=== PATIENT | female | born 1970 | race Caucasian/White ===

== ENCOUNTER → 2017-02-08 | Outpatient (CLI) | payer OTHER | END | disposition home or self-care (01) | LOC: MAMMO 15:39 | PROVIDERS: ATTEND Family Medicine | DX: Z12.31 Encounter for screening mammogram for malignant neoplasm of breast (principal) ==

== ENCOUNTER 2017-03-12 17:02 | Emergency (ER) | payer SELFPAY ==
[2017-03-12 17:17] VITALS: TEMP 98.3; O2SAT 97
--- NOTE | 2017-03-12 17:34 | ED.PDOC ---
History of Present Illness - General Chief Complaint: Abdominal Pain Stated Complaint: abdominal pain Time Seen by Provider: 03/12/17 17:33 Information Source: patient, RN notes reviewed, Vital Signs reviewed Additional Information: Pt reports that she thinks she is having a diverticulitis flare up. She reports several days of constipation over the past week. Two nights ago she tried Magnesium Citrate, and then last night she tried a [employer] stool softener and "Correct-all". Pt reports left lower lateral abdominal pain described as a cramping sensation with occasional sharp pain. She states her pain is better by lying still and applying a heating pad to the area. She says her pain is worse with movement or laughing. She denies recent trauma and she cannot recall any recent exacerbating event/activity which may have triggered the onset of her current symptoms. - History of Present Illness Abdominal Pain Onset Location: LLQ Quality: moderate, cramping, sharpness, waxing/waning Timing/Duration: 1 week Improving Factors: immobilization Worsening Factors: movement Associated Symptoms: other - constipation recently Review of Systems - Review of Systems Constitutional: States: no symptoms reported EENTM: States: no symptoms reported Respiratory: States: no symptoms reported Cardiology: States: no symptoms reported Gastrointestinal/Abdominal: States: see HPI, abdominal pain, constipation Genitourinary: States: no symptoms reported Musculoskeletal: States: no symptoms reported Skin: States: no symptoms reported Neurological: States: no symptoms reported Endocrine: States: no symptoms reported Hematologic/Lymphatic: States: no symptoms reported Past Medical History (General) - Patient Medical History Hx Dementia: Yes Hx Congestive Heart Failure: No Hx Diabetes: No Hx Gastroesophageal Reflux: Yes Hx Other PMH: Yes - Morbid Obesity Surgical History: cholecystectomy, tonsillectomy - Vaccination History Hx Tetanus, Diphtheria Vaccination: Yes Hx Influenza Vaccination: No - Social History Hx Tobacco Use: Yes Hx Alcohol Use: Yes - Female History Patient is a Female of Child Bearing Age (10 -59 yrs old): Yes Patient : No Family Medical History - Family History Mother Family History: No Known Living Status: Physical Exam - Physical Exam General Appearance: No apparent distress - at rest; but she is uncomfortable with movement or laughter, Obese Eyes, Ears, Nose, Throat Exam: PERRL/EOMI, normal ENT inspection Neck: non-tender, full range of motion, supple, normal inspection Respiratory: no respiratory distress Cardiovascular/Chest: regular rate, rhythm Gastrointestinal/Abdominal: soft, tenderness - left lateral aspect of abdomen Back Exam: normal inspection Extremity: normal range of motion, non-tender Neurologic: senior production supervisor II-XII nml as tested, no motor/sensory deficits, alert, normal mood/affect, oriented x 3 Skin Exam: normal color Special Observations: Tolerates fluids, Tolerates PO Progress - Progress Progress: 03/12/17 18:[address] results relayed to patient. Pt stable to be discharged home with plan for outpatient management. Return precautions given. - Results/Orders Results/Orders: CT Abd/Pelvis Report: EXAM DESCRIPTION: Abdomen/Pelvis w/Contrast CLINICAL HISTORY: 46 years Female left sided abdominal pain COMPARISON: None. TECHNIQUE: Contiguous axial images obtained through the abdomen and pelvis following IV contrast. Reformatted images obtained. This exam was performed according to our department optimization program which includes automated exposure control, adjustment of the mA and/or kv according to patient size and/or use of iterative reconstruction technique. FINDINGS: Liver is within normal limits of size. The spleen and pancreas appear unremarkable. No adrenal masses. The kidneys appear unremarkable. No hydronephrosis. The gallbladder is surgically absent. No aneurysmal dilatation of the aorta. No bowel obstruction. There is wall thickening and inflammation in the descending colon surrounding an inflamed diverticulum. Small amount of stranding along the paracolic gutter. No evidence of abscess. Unremarkable appendix. No significant free fluid noted. IMPRESSION: Findings suggesting acute uncomplicated diverticulitis in the descending colon Electronically signed by: Mary Grace Quiles 03/12/2017 6:20 PM CDT Dictated By: Mary Grace Quiles MD Signed By: Mary Grace Quiles MD Dictated Date/Time: 03/12/17 175 Transcribed Date/Time: 03/12/171752 Rug Layer: Signed Date/Time: 03/12/17 0760 CC: 03/12/17 17:54 Hold Metformin x 48Hrs [id number] Laboratory Results - last 24 hr 03/12/17 03/12/17 03/12/17 17:31 17:31 17:31 WBC 8.3 RBC 4.44 Hgb 13.5 Hct 40.2 MCV 90.5 MCH 30.4 MCHC 33.6 RDW 15.2 H Plt Count 336 MPV 8.1 Absolute Neuts (auto) 5.10 Absolute Lymphs (auto) 2.40 Absolute Monos (auto) 0.60 Absolute Eos (auto) 0.10 Absolute Basos (auto) 0.10 Neutrophils % 61.7 Lymphocytes % 28.7 Monocytes % 7.3 Eosinophils % 1.3 Basophils % 1.0 Sodium 139 Potassium 3.8 Chloride 101 Carbon Dioxide 26 Anion Gap 15.8 BUN 7 Creatinine 0.95 BUN/Creatinine Ratio 7.4 L Random Glucose 111 H Serum Osmolality 276.2 Calcium 8.9 Total Bilirubin 0.9 AST 20 ALT 15 Alkaline Phosphatase 84 Serum Total Protein 7.4 Albumin 3.8 Globulin 3.6 H Albumin/Globulin Ratio 1.1 Urine Color Yellow Urine Appearance Clear Urine pH 5.5 Ur Specific [place] 1.010 Urine Protein Negative Urine Glucose (UA) Negative Urine Ketones Negative Urine Blood Negative Urine Nitrite Negative Urine Bilirubin Negative Urine Urobilinogen 0.2 Ur Leukocyte Esterase Negative Urine RBC 0-1 Urine WBC 0-1 Ur Epithelial Cells 3-5 Urine Bacteria 2+ H Urine Mucus Trace 03/12/17 17:14 Temperature 98.3 F Pulse Rate [ 84 Right Brachial] Respiratory 20 Rate Blood Pressure 114/77 [Right Arm] O2 Sat by Pulse 97 Oximetry Departure - Departure Clinical Impression: Diverticulitis Qualifiers: Diverticulitis site: large intestine Diverticulitis bleeding: without bleeding Diverticulitis complication: without perforation or abscess Qualified Code(s): K57.32 - Diverticulitis of large intestine without perforation or abscess without bleeding Time of Disposition: 18:45 Disposition: Discharge to Home or Self Care Condition: Fair Departure Forms: ED Discharge - Pt. Copy, Patient Portal Self Enrollment Instructions: DI for Diverticulitis Diet: full liquid diet Referrals: CLAUDIA PRETTY [Primary Care Provider] - 1-2 Days Prescriptions: Ciprofloxacin [Cipro] 500 mg PO BID #20 tab metroNIDAZOLE [Flagyl] 500 mg PO TID #30 tab Home Medications: Ambulatory Orders Ciprofloxacin [Cipro] 500 mg PO BID #20 tab 03/12/17 metroNIDAZOLE [Flagyl] 500 mg PO TID #30 tab 03/12/17 Additional Instructions: Follow-up with primary care provider in 2 to 3 days for reassessment. Return to ER if condition worsens - fever, chills, unable to function, etc. Liquid diet for now and advance slowly as tolerated.
--- NOTE | 2017-03-12 18:22 | CT ---
EXAM DESCRIPTION: Abdomen/Pelvis w/Contrast CLINICAL HISTORY: 46 years Female left sided abdominal pain COMPARISON: None. TECHNIQUE: Contiguous axial images obtained through the abdomen and pelvis following IV contrast. Reformatted images obtained. This exam was performed according to our department optimization program which includes automated exposure control, adjustment of the mA and/or kv according to patient size and/or use of iterative reconstruction technique. FINDINGS: Liver is within normal limits of size. The spleen and pancreas appear unremarkable. No adrenal masses. The kidneys appear unremarkable. No hydronephrosis. The gallbladder is surgically absent. No aneurysmal dilatation of the aorta. No bowel obstruction. There is wall thickening and inflammation in the descending colon surrounding an inflamed diverticulum. Small amount of stranding along the paracolic gutter. No evidence of abscess. Unremarkable appendix. No significant free fluid noted. IMPRESSION: Findings suggesting acute uncomplicated diverticulitis in the descending colon Electronically signed by: Mary Grace Quiles 03/12/2017 6:20 PM CDT
[2017-03-12] MEDS ORDERED: metroNIDAZOLE 500 MG TAB PO ONE (18:42)
[2017-03-12] MEDS ORDERED: CIPROFLOXACIN 500 MG TAB PO ONE (18:42)
[2017-03-12 18:54] VITALS: BP 126/89
== END 2017-03-12 18:53 | disposition home or self-care (01) ==
LOC: ER 17:02
DX: K57.32 Diverticulitis of large intestine without perforation or abscess without bleeding (principal); K21.9 Gastro-esophageal reflux disease without esophagitis; F03.90 Unspecified dementia, unspecified severity, without behavioral disturbance, psychotic disturbance, mood disturbance, and anxiety; E66.01 Morbid (severe) obesity due to excess calories; Z87.891 Personal history of nicotine dependence

== ENCOUNTER 2018-06-25 14:58 | Emergency (ER) | payer OTHER ==
--- NOTE | 2018-06-25 15:22 | ED.PDOC ---
History of Present Illness - General Chief Complaint: Abdominal Pain Stated Complaint: abdominal pain Time Seen by Provider: 06/25/18 15:07 Information Source: patient Exam Limitations: no limitations - History of Present Illness Initial Comments: Jeri Staples 47 y/o female stated that she had been having intermittent dull intermittent left sided abdominal pains radiating to epigastrium since no vomiting or diarrhea ,no constipation but felt nauseated.Had been diagnosed with diverticulitis 2 years ago on abd-ct done here but no GI appointment made. Abdominal Pain Onset Location: LUQ, LLQ Pain Radiation: epigastric Quality: moderate Timing/Duration: days - 4 Improving Factors: nothing Worsening Factors: nothing Associated Symptoms: other - see hpi Review of Systems - Review of Systems Constitutional: States: no symptoms reported EENTM: States: no symptoms reported Respiratory: States: no symptoms reported Cardiology: States: no symptoms reported Gastrointestinal/Abdominal: States: see HPI Genitourinary: States: no symptoms reported Musculoskeletal: States: no symptoms reported Skin: States: no symptoms reported Neurological: States: no symptoms reported Past Medical History (General) - Patient Medical History Hx Dementia: Yes Hx Congestive Heart Failure: No Hx Diabetes: No Hx Gastroesophageal Reflux: Yes Surgical History: cholecystectomy, tonsillectomy, other - c- section - Vaccination History Hx Tetanus, Diphtheria Vaccination: Yes Hx Influenza Vaccination: No - Social History Hx Tobacco Use: Yes Hx Alcohol Use: Yes Hx Substance Use: No Hx Physical Abuse: No Hx Emotional Abuse: No - Female History Patient is a Female of Child Bearing Age (10 -59 yrs old): Yes Hx Last Menstrual Period: 06/10/18 Patient : No Family Medical History - Family History Mother Family History: No Known Living Status: Hx Family Stroke: Yes - mom Hx Family Diabetes: Yes - multiple family members Physical Exam - Physical Exam General Appearance: Alert, Comfortable, No apparent distress Eyes, Ears, Nose, Throat Exam: normal ENT inspection, pharynx normal Neck: non-tender, full range of motion, supple, normal inspection Respiratory: chest non-tender, lungs clear, normal breath sounds Cardiovascular/Chest: normal peripheral pulses, regular rate, rhythm, no murmur Peripheral Pulses: No deficit Gastrointestinal/Abdominal: normal bowel sounds, soft, tenderness - left sideabdomen no peritoneal signs Extremity: non-tender, no pedal edema, no calf tenderness Neurologic: alert, oriented x 3 Skin Exam: normal color, warm/dry Lymphatic: no adenopathy Progress - Progress Progress: 06/25/18 17:05 Vital Signs - 8 hr 06/25/18 06/25/18 16:00 16:45 Pulse Rate [ 73 73 left radial] Respiratory 16 18 Rate Blood Pressure 118/97 117/93 [left radial] O2 Sat by Pulse 98 97 Oximetry - Results/Orders Results/Orders: 06/25/18 15:31 IV Care:Saline Lock per Protoc QSHIFT 06/25/18 16:17 Hold Metformin x 48Hrs [id number] Laboratory Results - last 24 hr 06/25/18 06/25/18 15:39 15:50 WBC 9.0 RBC 4.55 Hgb 14.3 Hct 42.8 MCV 93.9 MCH 31.4 H MCHC 33.4 RDW 14.1 Plt Count 295 MPV 8.2 Absolute Neuts (auto) 5.80 Absolute Lymphs (auto) 2.40 Absolute Monos (auto) 0.60 Absolute Eos (auto) 0.10 Absolute Basos (auto) 0.10 Neutrophils % 65.0 Lymphocytes % 27.2 Monocytes % 6.2 Eosinophils % 0.9 L Basophils % 0.7 PT 9.7 INR 0.97 PTT (SP) 25.5 Sodium 137 Potassium 3.7 Chloride 100 L Carbon Dioxide 29 Anion Gap 11.7 L BUN 10 Creatinine 1.00 BUN/Creatinine Ratio 10.0 Random Glucose 96 Serum Osmolality 272.7 L Calcium 8.8 Magnesium 2.2 Total Bilirubin 0.6 Direct Bilirubin 0.1 Indirect Bilirubin 0.5 AST 18 ALT 12 Alkaline Phosphatase 81 Creatine Kinase 143 H CK-MB (CK-2) 1.4 CK-MB (CK-2) % Not Reportable Troponin I < 0.02 Serum Total Protein 7.4 Albumin 3.8 Lipase 24 Urine Color Yellow Urine Appearance Clear Urine pH 7.0 Ur Specific [place] 1.020 Urine Protein Negative Urine Glucose (UA) Negative Urine Ketones Negative Urine Blood Negative Urine Nitrite Negative Urine Bilirubin Negative Urine Urobilinogen 0.2 Ur Leukocyte Esterase Negative Urine RBC 0 Urine WBC 0 Ur Epithelial Cells 10-20 Urine Bacteria Rare - EKG/XRAY/CT CT Ordered: Yes - abd/p-mild sigmoid diverticulitis/radiologist Departure - Departure Clinical Impression: Diverticulitis of large intestine Qualifiers: Diverticulitis bleeding: without bleeding Diverticulitis complication: without perforation or abscess Qualified Code(s): K57.32 - Diverticulitis of large intestine without perforation or abscess without bleeding Abdominal pain Qualifiers: Abdominal location: left lower quadrant Qualified Code(s): R10.32 - Left lower quadrant pain Time of Disposition: 17:08 Disposition: Discharge to Home or Self Care Condition: Fair Departure Forms: ED Discharge - Pt. Copy, Patient Portal Self Enrollment Instructions: Diverticulitis (DC), Diverticulitis Diet: full liquid diet - for the next 48 hour then to advanced as tolerated avoid high fiber diet for 7 days Referrals: CLAUDIA PRETTY [Primary Care Provider] - 1-2 Weeks Prescriptions: Ciprofloxacin [Cipro] 500 mg PO BID #20 tab Metronidazole 500 mg PO BID 7 Days #14 tab Promethazine W/Codeine Syr [Phenergan With Codeine Syrup] 10 ml PO TID PRN #100 ml PRN Reason: Pain Home Medications: Ambulatory Orders Ciprofloxacin [Cipro] 500 mg PO BID #20 tab 06/25/18 Citalopram Hydrobromide [Citalopram] 40 mg PO 06/25/18 LORazepam [Ativan] 0.5 mg PO Q8HR PRN 06/25/18 Metronidazole 500 mg PO BID 7 Days #14 tab 06/25/18 Promethazine W/Codeine Syr [Phenergan With Codeine Syrup] 10 ml PO TID PRN #100 ml 06/25/18 Additional Instructions: Return to ER if symptoms worsens;follow up with primary Md 26 June 2018 for Gastroentology referral
[2018-06-25] MEDS ORDERED: LACTATED RINGERS 1,000 ML IVS ONE (15:31)
[2018-06-25] MEDS ORDERED: MORPHINE SULFATE INJ 10 MG/ML VIAL IV ONE (15:32)
[2018-06-25] MEDS ORDERED: PROMETHAZINE HCL INJ 25 MG/ML VIAL IM ONE (15:33)
--- NOTE | 2018-06-25 16:54 | CT ---
EXAM: Abdomen/Pelvis w/Contrast CLINICAL INDICATION: Abdominal pain. COMPARISON: 03/12/2017 TECHNIQUE: The CT scan was done using contiguous axial 5 mm postcontrast sections through the abdomen and pelvis including IV contrast. This exam was performed according to our departmental dose-optimization program, which includes automated exposure control, adjustment of the mA and/or kV according to patient size and/or use of iterative reconstruction technique. FINDINGS: This examination is labeled as a postcontrast study but there is minimal contrast opacification of the organs and vessels. Suggest clinical correlation for IV extravasation. The visualized lung bases are clear. The liver, spleen, adrenal glands, kidneys, and pancreas have an unremarkable CT appearance. The aorta is normal in caliber. No dilated loops of small bowel are seen. The sigmoid colon has a mildly thickened and inflamed appearance suggesting mild acute diverticulitis. A 4.1 x 3.2 cm simple cyst is noted in the left ovary. There is no abscess or free air. IMPRESSION: 1. Findings suggesting mild acute diverticulitis. 2. 4.1 x 3.2 cm simple cyst in the left ovary, almost certainly benign for which no imaging follow-up is recommended. In the acute pain setting, correlation with pelvic ultrasound may be warranted to exclude ovarian torsion. 3. Otherwise, no acute intra-abdominal process. Electronically signed by: Perez Castaneda MD 06/25/2018 4:53 PM THERAPY SITE COORDINATOR
[2018-06-25] MEDS ORDERED: levoFLOXacin 500 MG TAB PO ONE (17:08)
[2018-06-25] MEDS ORDERED: metroNIDAZOLE 500 MG TAB PO ONE (17:09)
[2018-06-25 18:18] VITALS: BP 107/66; O2SAT 94
== END 2018-06-25 17:18 | disposition home or self-care (01) ==
LOC: ER 14:58
DX: K57.32 Diverticulitis of large intestine without perforation or abscess without bleeding (principal); K21.9 Gastro-esophageal reflux disease without esophagitis; F03.90 Unspecified dementia, unspecified severity, without behavioral disturbance, psychotic disturbance, mood disturbance, and anxiety; Z90.49 Acquired absence of other specified parts of digestive tract; Z87.891 Personal history of nicotine dependence
CPT/HCPCS: 36415; 74177; 80048; 80076; 81001; 82550; 82553; 83690; 84484; 85025; 85610; 85730; J2270; J2550; J7120

== ENCOUNTER 2018-08-18 08:42 | Emergency (ER) | payer SELFPAY ==
[2018-08-18 08:57] VITALS: BP 153/121; TEMP 99.5; O2SAT 95
[2018-08-18] MEDS ORDERED: BENZONATATE PERLES 100 MG CAP PO ONE (09:13)
[2018-08-18] MEDS ORDERED: AMOXICILLIN & POT CLAVULANATE 875 MG TAB PO ONE (09:13)
--- NOTE | 2018-08-18 09:16 | ED.PDOC ---
History of Present Illness - General Chief Complaint: Respiratory Problem Stated Complaint: cough, nasal congestion Time Seen by Provider: 08/18/18 09:13 Source: patient Exam Limitations: no limitations - History of Present Illness Comments: PT REPORTS 2 DAY HISTORY OF FACIAL PAIN, HEADACHE, NASAL CONGESTION AND COUGH. PT DENIES FEVER, CHILLS, SOB, OR CHEST PAIN. Cough Quality/Degree: mild Improving Factors: nothing Worsening Factors: nothing Associated Symptoms: cough, facial pain, headache, nasal congestion, nasal drainage, sinus infection Allergies/Adverse Reactions: Allergies Sulfamethoxazole w/Trimethoprim [From ] Allergy (Mild, Verified 08/18/18 08:58) Hives Home Medications: Ambulatory Orders Amoxicillin & Pot Clavulanate [Augmentin] 875 mg PO BID #20 tab 08/18/18 Benzonatate Perles [Tessalon Perles] 200 mg PO TID PRN #30 cap 08/18/18 Review of Systems - Review of Systems Constitutional: Denies: chills, fever EENTM: States: nose congestion. Denies: ear pain, throat pain Respiratory: States: cough. Denies: short of breath Cardiology: Denies: chest pain, palpitations Gastrointestinal/Abdominal: Denies: abdominal pain, nausea, vomiting Past Medical History (General) - Patient Medical History Hx Dementia: Yes Hx Congestive Heart Failure: No Hx Diabetes: No Hx Gastroesophageal Reflux: Yes Surgical History: cholecystectomy, tonsillectomy - Vaccination History Hx Tetanus, Diphtheria Vaccination: Yes Hx Influenza Vaccination: No - Social History Hx Tobacco Use: Yes Hx Alcohol Use: Yes Hx Substance Use: No Hx Physical Abuse: No Hx Emotional Abuse: No - Female History Hx Last Menstrual Period: 06/10/18 Patient : No Family Medical History - Family History Mother Family History: No Known Living Status: Hx Family Stroke: Yes - mom Hx Family Diabetes: Yes - multiple family members Physical Exam - Physical Exam General Appearance: Alert, No apparent distress, Obese, Well Groomed ENT Exam: hearing grossly normal, pharyngeal erythema, other - FRONTAL AND MAXILLARY SINUS TENDERNESS Neck: lymphadenopathy (R), lymphadenopathy (L) Respiratory: lungs clear, normal breath sounds, no respiratory distress Cardiovascular/Chest: regular rate, rhythm, no murmur Neurologic: alert, normal mood/affect, oriented x 3 Skin Exam: normal color, warm/dry Departure - Departure Clinical Impression: Sinusitis, URI with cough and congestion Time of Disposition: 09:17 Disposition: Discharge to Home or Self Care Condition: Good Departure Forms: ED Discharge - Pt. Copy, Patient Portal Self Enrollment Instructions: Sinusitis, Adult (DC), Viral Upper Respiratory Infection, Adult (DC) Referrals: CLAUDIA PRETTY [Primary Care Provider] - 1-5 Days Prescriptions: Amoxicillin & Pot Clavulanate [Augmentin] 875 mg PO BID #20 tab Benzonatate Perles [Tessalon Perles] 200 mg PO TID PRN #30 cap PRN Reason: Cough Home Medications: Ambulatory Orders Amoxicillin & Pot Clavulanate [Augmentin] 875 mg PO BID #20 tab 08/18/18 Benzonatate Perles [Tessalon Perles] 200 mg PO TID PRN #30 cap 08/18/18
== END 2018-08-18 09:40 | disposition home or self-care (01) ==
LOC: ER 08:42
DX: J06.9 Acute upper respiratory infection, unspecified (principal); J32.9 Chronic sinusitis, unspecified; K21.9 Gastro-esophageal reflux disease without esophagitis; F03.90 Unspecified dementia, unspecified severity, without behavioral disturbance, psychotic disturbance, mood disturbance, and anxiety; Z87.891 Personal history of nicotine dependence; Z88.2 Allergy status to sulfonamides

== ENCOUNTER → 2018-09-05 | Outpatient (CLI) | payer OTHER ==
--- NOTE | 2018-09-08 16:13 | MAM ---
EXAM DESCRIPTION: 3D Screening BILATERAL : Digital Mammography. CLINICAL HISTORY: 47 years Female SCREENING . Bilateral pain underneath breast. No personal history of breast cancer. Remote family history of breast cancer. Childbirth. Premenopausal. No HRT. Benign left breast biopsy... Lifetime risk of developing breast cancer (Tyrer-Cuzick model)(%): 11.9. COMPARISON: 2-D digital screening bilateral mammography the 02/08/2017. TECHNIQUE: Bilateral CC and MLO projection full-field images, digital tomosynthesis mammographic technique. Bilateral digital 2-D full-field MLO images. CAD not available for tomosynthesis or 2-D images. FINDINGS: The breast parenchymal density pattern is: Scattered areas of fibroglandular density. No skin thickening or nipple retraction. Bilateral solitary microcalcifications. Right axillary lymph nodes. Axillary tail lymph node on the left. No new focal, stellate mass or density, focal asymmetry , and no suspicious microcalcifications bilaterally. Stable mammograms compared to prior study. Taking into account, differences in mammographic technique. IMPRESSION: Benign exam. BIRAD CATEGORY: 2 BENIGN FINDINGS. RECOMMENDATIONS: FOLLOW UP: Routine digital bilateral mammographic screening, one year interval from August 2018. Written communication explaining the IMPRESSION and follow-up, will be mailed to the patient and referring health care provider. According to the [employer], yearly mammograms are recommended starting at age 40 and continuing as long as a woman is in good health. Any breast change noted on a breast self-exam should be reported promptly to the patient's healthcare provider. Breast MRI is recommended for women with an approximately 20-25% or greater lifetime risk of breast cancer, including women with a strong family history of breast or ovarian cancer and women who have been treated for Hodgkin's disease. A negative mammographic report should not delay tissue diagnosis in patients with significant clinical history or physical findings. Extremely dense breast tissue limits the sensitivity of digital mammography. Electronically signed by: Michele Westbrook MD 09/08/2018 4:12 PM KRAFT MILL OPERATOR
== END ==
LOC: MAMMO 15:39
PROVIDERS: ATTEND Family Medicine
DX: Z12.31 Encounter for screening mammogram for malignant neoplasm of breast (principal)

== ENCOUNTER 2018-09-24 18:50 | Emergency (ER) | payer SELFPAY ==
[2018-09-24] MEDS ORDERED: predniSONE 20 MG TAB PO ONE (19:04)
[2018-09-24] MEDS ORDERED: CETIRIZINE HCL 10 MG TAB PO ONE (19:05)
--- NOTE | 2018-09-24 19:07 | ED.PDOC ---
History of Present Illness - General Chief Complaint: Skin/Abrasion/Tear Stated Complaint: rash Time Seen by Provider: 09/24/18 18:54 Source: patient Exam Limitations: no limitations - History of Present Illness Initial Comments: the patient is a 47-year-old female presenting to emergency room secondary to rash that is primarily around the neck and around the waistline as well as to the distal upper extremities. There are discrete areas that are consistent with insect bites. No pustules and no vesicles. There is obviously some mild allergic reaction associated with them. No obvious extending cellulitis. The rash is extremely pruritic. Apparently the patient just moved into a new apartmentwithin the last week. Timing/Duration: other - 3 days Severity: moderate Allergies/Adverse Reactions: Allergies Sulfamethoxazole w/Trimethoprim [From ] Allergy (Mild, Verified 08/18/18 08:58) Hives Home Medications: Ambulatory Orders NK 09/24/18 Review of Systems - Review of Systems Constitutional: States: no symptoms reported EENTM: States: no symptoms reported Respiratory: States: no symptoms reported Cardiology: States: no symptoms reported Gastrointestinal/Abdominal: States: no symptoms reported Genitourinary: States: no symptoms reported Musculoskeletal: States: no symptoms reported Skin: States: see HPI Neurological: States: no symptoms reported Endocrine: States: no symptoms reported All other Systems: No Change from Baseline Past Medical History (General) - Patient Medical History Hx Dementia: Yes Hx Congestive Heart Failure: No Hx Diabetes: No Hx Gastroesophageal Reflux: Yes Surgical History: cholecystectomy, tonsillectomy - Vaccination History Hx Tetanus, Diphtheria Vaccination: Yes Hx Influenza Vaccination: No - Social History Hx Tobacco Use: Yes Hx Alcohol Use: Yes Hx Substance Use: No Hx Physical Abuse: No Hx Emotional Abuse: No - Female History Hx Last Menstrual Period: 06/10/18 Patient : No Family Medical History - Family History Mother Family History: No Known Living Status: Hx Family Stroke: Yes - mom Hx Family Diabetes: Yes - multiple family members Physical Exam - Physical Exam General Appearance: Alert, No apparent distress Eye Exam: bilateral normal Ears, Nose, Throat: hearing grossly normal, normal ENT inspection, normal pharynx Neck: full range of motion, supple Respiratory: lungs clear, normal breath sounds, no respiratory distress, no accessory muscle use Cardiovascular/Chest: normal peripheral pulses, regular rate, rhythm, no edema Peripheral Pulses: radial,right: 2+, radial,left: 2+ Gastrointestinal/Abdominal: non tender, soft Back Exam: normal inspection, no CVA tenderness, no vertebral tenderness Extremity: normal range of motion, non-tender, normal inspection, no pedal edema, normal capillary refill 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 Given the history of the patient just moved to a new apartment it is likely that there are bedbugs or fleas present. She does appear to be having a very mild localized allergic reaction to the bites. She is given a dose of oral prednisone and Zyrtec here. She can pickle cutter Zyrtec and take it twice daily for the next week to help reduce allergic reaction. She of course does need to clean all linens in high heat. She needs to wash pillows as well. She may end up having to do something different with the mattresses. No evidence of any cellulitis at this time. ER warnings were given. Departure - Departure Clinical Impression: Insect bites Qualifiers: Encounter type: initial encounter Site of insect bite: unspecified site Qualified Code(s): W57.XXXA - Bitten or stung by nonvenomous insect and other nonvenomous arthropods, initial encounter Disposition: Discharge to Home or Self Care Condition: Fair Departure Forms: ED Discharge - Pt. Copy, Patient Portal Self Enrollment Instructions: Bedbugs Diet: regular diet Activity: increase activity as tolerated Referrals: CLAUDIA PRETTY [Primary Care Provider] - 1-2 Weeks Home Medications: Ambulatory Orders NK 09/24/18 Additional Instructions: the patient's 47-year-old female presenting to emergency room secondary to a rash that is most consistent with insect bites. Given the history of the patient just moved to a new apartment it is likely that there are bedbugs or fleas present. She does appear to be having a very mild localized allergic reaction to the bites. She is given a dose of oral prednisone and Zyrtec here. She can pickle cutter Zyrtec and take it twice daily for the next week to help reduce allergic reaction. She of course does need to clean all linens in high heat. She needs to wash pillows as well. She may end up having to do something different with the mattresses. No evidence of any cellulitis at this time. ER warnings were given.
[2018-09-24 19:41] VITALS: BP 150/88; TEMP 98.1; O2SAT 96
== END 2018-09-24 19:41 | disposition home or self-care (01) ==
LOC: ER 18:50
DX: S40.862A Insect bite (nonvenomous) of left upper arm, initial encounter (principal); S40.861A Insect bite (nonvenomous) of right upper arm, initial encounter; S30.861A Insect bite (nonvenomous) of abdominal wall, initial encounter; S10.96XA Insect bite of unspecified part of neck, initial encounter; K21.9 Gastro-esophageal reflux disease without esophagitis; W57.XXXA Bitten or stung by nonvenomous insect and other nonvenomous arthropods, initial encounter; Z88.2 Allergy status to sulfonamides; Y92.009 Unspecified place in unspecified non-institutional (private) residence as the place of occurrence of the external cause

== ENCOUNTER 2019-01-23 10:03 | Emergency (ER) | payer SELFPAY ==
[2019-01-23 10:14] VITALS: TEMP 96.9
[2019-01-23] MEDS: IPRATROPIUM/ALBUTEROL 3 ML VIAL INH ONE (10:30)
[2019-01-23] MEDS: methylPREDNISolone SODIUM SUC 125 MG/2 ML VIAL IV ONE (10:33)
[2019-01-23] MEDS: SODIUM CHLORIDE 0.9% (FLUSH) 10 ML SYG IV PRN (10:33)
--- NOTE | 2019-01-23 10:33 | ED.PDOC ---
History of Present Illness - General Chief Complaint: Respiratory Problem Stated Complaint: shortness of breath, dizzy Time Seen by Provider: 01/23/19 10:26 Source: patient Exam Limitations: no limitations - History of Present Illness Initial Comments: PT PRESENTS WITH COMPLAINT OF 4 DAY HISTORY OF PRODUCTIVE COUGH, FEVER, SOB, AND DIZZINESS. Severity: moderate Improving Factors: rest Worsening Factors: movement Associated Symptoms: cough, fever, lightheadedness Respiratory Risk Factors: exposure to illness - DAUGHTER HAD BRONCHITIS Allergies/Adverse Reactions: Allergies Sulfamethoxazole w/Trimethoprim [From ] Allergy (Mild, Verified 08/18/18 08:58) Hives Home Medications: Ambulatory Orders Azithromycin Tab [Zithromax] 250 mg PO QD #4 tab 01/23/19 Benzonatate Perles [Tessalon Perles] 200 mg PO TID PRN #30 cap 01/23/19 Prednisone 50 mg PO DAILY 4 Days #4 tab 01/23/19 Review of Systems - Review of Systems Constitutional: States: chills, fever EENTM: States: throat pain. Denies: nose congestion Respiratory: States: cough, short of breath Cardiology: Denies: chest pain, palpitations Gastrointestinal/Abdominal: States: nausea, vomiting. Denies: diarrhea Genitourinary: Denies: dysuria, frequency Musculoskeletal: Denies: joint pain, joint swelling Skin: Denies: lesions, rash Neurological: Denies: headache, numbness Endocrine: States: no symptoms reported Hematologic/Lymphatic: States: no symptoms reported Past Medical History (General) - Patient Medical History Hx Seizures: No Hx Dementia: Yes Hx Asthma: No Hx of COPD: No Hx Cardiac Disorders: No Hx Congestive Heart Failure: No Hx Diabetes: No Hx Gastroesophageal Reflux: Yes Surgical History: cholecystectomy, tonsillectomy, other - Vaccination History Hx Tetanus, Diphtheria Vaccination: Yes Hx Influenza Vaccination: No - Social History Hx Tobacco Use: Yes Hx Alcohol Use: Yes Hx Substance Use: No Hx Physical Abuse: No Hx Emotional Abuse: No - Female History Hx Last Menstrual Period: 06/10/18 Patient : Yes Family Medical History - Family History Mother Family History: No Known Living Status: Hx Family Stroke: Yes - mom Hx Family Diabetes: Yes - multiple family members Physical Exam - Physical Exam General Appearance: Alert, Obese, Well Groomed, Well Hydrated, Other - APPEARS UNCOMFORTABLE Eyes, Ears, Nose, Throat Exam: pharyngeal erythema Neck: non-tender, full range of motion, supple Respiratory: wheezing Cardiovascular/Chest: regular rate, rhythm, no murmur Gastrointestinal/Abdominal: non tender, soft Extremity: non-tender, normal inspection Neurologic: alert, normal mood/affect, oriented x 3 Skin Exam: normal color, other - CLAMMY Progress - Progress Progress: 01/23/19 11:16 PT REPORTS ONLY MINIMAL IMPROVEMENT IN SYMPTOMS AFTER DUONEB, LABS AND DIAGNOSTICS DISCUSSED. ADDITIONAL DUONEB ORDERED. 01/23/19 12:42 PT REPORTS SOME IMPROVEMENT IN SYMPTOMS AFTER 2ND DUONEB. WHEEZING RESOLVED ON AUSCULTATION PT HAS NEB MACHINE AND ALBUTEROL AT HOME. I RECOMMENDED NEB TREATMENTS Q4 HOURS NEEDED. - Results/Orders Results/Orders: Laboratory Tests 01/23/19 01/23/19 10:18 10:18 WBC 5.2 RBC 4.64 Hgb 15.1 Hct 44.3 MCV 95.5 MCH 32.4 H MCHC 34.0 RDW 14.1 Plt Count 211 MPV 8.7 Absolute Neuts (auto) 2.80 Absolute Lymphs (auto) 1.70 Absolute Monos (auto) 0.50 Absolute Eos (auto) 0.10 Absolute Basos (auto) 0.00 Neutrophils % 54.9 Lymphocytes % 33.0 Monocytes % 9.9 H Eosinophils % 1.7 Basophils % 0.5 Sodium 138 Potassium 3.5 L Chloride 101 Carbon Dioxide 26 Anion Gap 14.5 BUN 11 Creatinine 0.78 BUN/Creatinine Ratio 14.1 Random Glucose 116 H Serum Osmolality 276.1 Calcium 8.4 Total Bilirubin 1.4 H AST 24 ALT 16 Alkaline Phosphatase 79 B-Natriuretic Peptide 7.2 Serum Total Protein 7.6 Albumin 3.8 Globulin 3.8 H Albumin/Globulin Ratio 1.0 L - EKG/XRAY/CT EKG: Sinus - @82BPM, NL INTERVALS, NL AXIS, ST depression - SLIGHT IN THE LATERAL LEADS, Unchanged from - 12/05/14 XRAY: chest - LLL INFILTRATE Departure - Departure Clinical Impression: LLL pneumonia, Tobacco abuse Time of Disposition: 12:46 Disposition: Discharge to Home or Self Care Condition: Fair Departure Forms: ED Discharge - Pt. Copy, Patient Portal Self Enrollment Instructions: DI for Pneumonia -- Adult Diet: resume usual diet Referrals: MARIA DE JESUS,CLAUDIA A [Primary Care Provider] - 1-5 Days Prescriptions: Azithromycin Tab [Zithromax] 250 mg PO QD #4 tab Benzonatate Perles [Tessalon Perles] 200 mg PO TID PRN #30 cap PRN Reason: Cough Prednisone 50 mg PO DAILY 4 Days #4 tab Home Medications: Ambulatory Orders Azithromycin Tab [Zithromax] 250 mg PO QD #4 tab 01/23/19 Benzonatate Perles [Tessalon Perles] 200 mg PO TID PRN #30 cap 01/23/19 Prednisone 50 mg PO DAILY 4 Days #4 tab 01/23/19
--- NOTE | 2019-01-23 10:49 | RAD ---
EXAM DESCRIPTION: Chest,1 View CLINICAL HISTORY: cough/shortness of breath COMPARISON: None Available. TECHNIQUE: Upright portable frontal view the chest FINDINGS: Cardiac silhouette shows normal heart size. Pulmonary vascularity is within normal limits. Subtle increased opacity in the left lower lung zone may represent atelectasis versus infiltrate. Right lung shows no confluent infiltrate. No significant pleural effusion. No pneumothorax. No acute osseous abnormality. IMPRESSION: Subtle increased opacity in the left lower lung zone may represent atelectasis versus infiltrate. Electronically signed by: Taj Johnson MD 01/23/2019 10:47 AM CDT
[2019-01-23] MEDS ORDERED: cefTRIAXone SODIUM 1 GM VIAL ONE (11:43)
[2019-01-23] MEDS ORDERED: SODIUM CHL 0.9% 50ML MIN-BAG+ 50 ML IVPB ONE (11:44)
[2019-01-23] MEDS: IPRATROPIUM/ALBUTEROL 3 ML VIAL NEB ONE (12:00)
[2019-01-23] MEDS: AZITHROMYCIN 250 MG TAB PO ONE (12:04)
[2019-01-23] MEDS: cefTRIAXone SODIUM 1 GM in SODIUM CHL 0.9% 50ML MIN-BAG+ 50 ML IVPB ONE (12:04)
[2019-01-23 13:09] VITALS: BP 140/79; O2SAT 92
== END 2019-01-23 13:00 | disposition home or self-care (01) ==
LOC: ER 10:03
DX: J18.9 Pneumonia, unspecified organism (principal); F17.200 Nicotine dependence, unspecified, uncomplicated; F03.90 Unspecified dementia, unspecified severity, without behavioral disturbance, psychotic disturbance, mood disturbance, and anxiety; K21.9 Gastro-esophageal reflux disease without esophagitis; Z88.2 Allergy status to sulfonamides
CPT/HCPCS: 71045; 80053; 83880; 85025; 93005; 94640; 94760; J0696; J2930; J7050; J7620; Q0144

== ENCOUNTER 2019-05-16 08:19 | Emergency (ER) | payer OTHER, SELFPAY ==
[2019-05-16] MEDS ORDERED: KETOROLAC TROMETHAMINE INJ 60 MG/2 ML VIAL IM ONE (08:45)
[2019-05-16] MEDS ORDERED: diazePAM INJ 10 MG/2 ML SYG IM ONE (08:45)
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
[2019-05-16 09:04] VITALS: O2SAT 97
[2019-05-16 11:00] VITALS: BP 136/101; TEMP 97
== END 2019-05-16 11:10 | disposition home or self-care (01) ==
LOC: ER 08:19
DX: S13.4XXA Sprain of ligaments of cervical spine, initial encounter (principal); M25.511 Pain in right shoulder; M25.512 Pain in left shoulder; Z88.2 Allergy status to sulfonamides; Z87.891 Personal history of nicotine dependence; V49.59XA Passenger injured in collision with other motor vehicles in traffic accident, initial encounter; Y92.410 Unspecified street and highway as the place of occurrence of the external cause
CPT/HCPCS: J1885; J3360

== ENCOUNTER 2020-05-06 22:21 | Emergency (ER) | payer OTHER ==
--- NOTE | 2020-05-06 22:58 | RAD ---
EXAM: Chest,1 View CLINICAL INDICATION: 49-year-old female with cough and sore throat. TECHNIQUE: Single view, AP portable chest was obtained. COMPARISON: 01/23/2019. FINDINGS: Unremarkable cardiac and mediastinal silhouette. Heart size is normal. Lungs are clear without focal opacity, pneumothorax or pleural effusions. The visualized bones are within normal limits. IMPRESSION: No acute cardiopulmonary abnormalities. Electronically signed by: Abril Nuñez MD 05/06/2020 10:57 PM CDT
--- NOTE | 2020-05-07 01:41 | ED.PDOC ---
History of Present Illness - General Chief Complaint: Respiratory Problem Stated Complaint: cough, sore throat Time Seen by Provider: 05/06/20 22:23 Source: patient Exam Limitations: no limitations - History of Present Illness Initial Comments: The patient is a 49-year-old female presenting to the emergency room secondary to persistent cough with congestion. The patient is already had this for about a week and has been on a course of azithromycin and prednisone. No real shortness of breath. No fever. No nausea or vomiting. Timing/Duration: 1 week, constant Severity: moderate Improving Factors: nothing Worsening Factors: nothing Associated Symptoms: cough, malaise Allergies/Adverse Reactions: Allergies Sulfamethoxazole w/Trimethoprim [From ] Allergy (Mild, Verified 08/18/18 08:58) Hives Home Medications: Ambulatory Orders Cyclobenzaprine HCl [Flexeril] 10 mg PO Q6HRS #28 tab 05/16/19 Tramadol HCl [Ultram] 50 mg PO Q6HRS #20 tab 05/16/19 Review of Systems - Review of Systems Constitutional: States: malaise EENTM: States: nose congestion, throat pain Respiratory: States: cough Cardiology: States: no symptoms reported Gastrointestinal/Abdominal: States: no symptoms reported Genitourinary: States: no symptoms reported Musculoskeletal: States: no symptoms reported Skin: States: no symptoms reported Neurological: States: no symptoms reported Endocrine: States: no symptoms reported All other Systems: No Change from Baseline Past Medical History (General) - Patient Medical History Hx Seizures: No Hx Dementia: No Hx Asthma: No Hx of COPD: No Hx Cardiac Disorders: No Hx Congestive Heart Failure: No Hx Thyroid Disease: No Hx Diabetes: No Hx Gastroesophageal Reflux: - diverticulitis Surgical History: cholecystectomy, tonsillectomy, other - Vaccination History Hx Tetanus, Diphtheria Vaccination: No Hx Influenza Vaccination: No Hx Pneumococcal Vaccination: No - Social History Hx Tobacco Use: Yes Hx Alcohol Use: Yes - seldom Hx Substance Use: No Hx Physical Abuse: No Hx Emotional Abuse: No - Female History Hx Last Menstrual Period: 06/10/18 Patient : Yes Family Medical History - Family History Mother Family History: No Known Living Status: Hx Family Stroke: Yes - mom Hx Family Diabetes: Yes - multiple family members Physical Exam - Physical Exam General Appearance: Alert, No apparent distress Eye Exam: bilateral normal Ears, Nose, Throat: hearing grossly normal, normal pharynx Neck: full range of motion, supple Respiratory: no respiratory distress, no accessory muscle use, rhonchi Cardiovascular/Chest: normal peripheral pulses, regular rate, rhythm, no edema Peripheral Pulses: radial,right: 2+, radial,left: 2+ Gastrointestinal/Abdominal: non tender, soft Rectal Exam: deferred Extremity: normal range of motion, non-tender, normal inspection, no pedal edema, normal capillary refill 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 Chest x-ray is clear. Viral panel was positive for rhinovirus. Progress - Progress Progress: 05/07/20 01:40 The patient is a 49-year-old female presented emergency room with what appears to be a mild viral bronchitis related to rhinovirus. No additional treatment is warranted at this time. Patient is to keep follow-up with her primary care doctor. ER warnings were given. joanna irvin [id number] Departure - Departure Clinical Impression: Acute bronchitis, viral Disposition: Discharge to Home or Self Care Condition: Fair Departure Forms: ED Discharge - Pt. Copy, Patient Portal Self Enrollment Diet: regular diet Activity: increase activity as tolerated Referrals: JUAN C MAGALLON IV, AUTOMOTIVE ELECTRICIAN HELPER [Primary Care Provider] - 1-2 Weeks Home Medications: Ambulatory Orders Cyclobenzaprine HCl [Flexeril] 10 mg PO Q6HRS #28 tab 05/16/19 Tramadol HCl [Ultram] 50 mg PO Q6HRS #20 tab 05/16/19 Additional Instructions: The patient is a 49-year-old female presented emergency room with what appears to be a mild viral bronchitis related to rhinovirus. No additional treatment is warranted at this time. Patient is to keep follow-up with her primary care doctor. ER warnings were given.
[2020-05-07 01:50] VITALS: BP 113/79; TEMP 97.5; O2SAT 96
== END 2020-05-07 01:50 | disposition home or self-care (01) ==
LOC: ER 22:21
DX: J20.8 Acute bronchitis due to other specified organisms (principal); Z87.891 Personal history of nicotine dependence; Z20.828 Contact with and (suspected) exposure to other viral communicable diseases

== ENCOUNTER 2020-08-19 07:10 | Emergency (ER) | payer SELFPAY ==
[2020-08-19 07:28] VITALS: TEMP 97.2
--- NOTE | 2020-08-19 07:32 | ED.PDOC ---
History of Present Illness - General Chief Complaint: Headache Stated Complaint: QUINONES, cough, dizziness, sneezing Time Seen by Provider: 08/19/20 07:11 Source: patient Exam Limitations: no limitations - History of Present Illness Initial Comments: 1 DAY URI SX: SNEEZING, QUINONES, LIGHT HEADED, VX1, SWEATS, BL EARACHE, LAD, COUGH. Timing/Duration: 24 hours Severity: moderate Improving Factors: nothing Worsening Factors: nothing Associated Symptoms: cough, fever/chills, headaches Allergies/Adverse Reactions: Allergies Sulfamethoxazole w/Trimethoprim [From ] Allergy (Mild, Verified 08/19/20 07:24) Hives Home Medications: Ambulatory Orders Cyclobenzaprine HCl [Flexeril] 10 mg PO Q6HRS #28 tab 05/16/19 Tramadol HCl [Ultram] 50 mg PO Q6HRS #20 tab 05/16/19 Review of Systems - Review of Systems Constitutional: States: other - SWEATS. Denies: chills, fever EENTM: States: ear pain, other - DENIES SORE THROAT. . Denies: nose congestion, throat pain, throat swelling Respiratory: States: cough. Denies: short of breath Cardiology: Denies: chest pain, palpitations Gastrointestinal/Abdominal: Denies: abdominal pain, nausea Genitourinary: Denies: dysuria, frequency Musculoskeletal: States: other - BASELINE CHRONIC PAINS. . Denies: neck pain Skin: Denies: lesions, rash Neurological: Denies: paresthesia, weakness Endocrine: States: no symptoms reported Hematologic/Lymphatic: States: no symptoms reported All other Systems: Reviewed and Negative Past Medical History (General) - Patient Medical History Hx Seizures: No Hx Dementia: No Hx Asthma: No Hx of COPD: No Hx Cardiac Disorders: No Hx Congestive Heart Failure: No Hx Thyroid Disease: No Hx Diabetes: No Hx Gastroesophageal Reflux: - diverticulitis - Vaccination History Hx Tetanus, Diphtheria Vaccination: No Hx Influenza Vaccination: No Hx Pneumococcal Vaccination: No - Social History Hx Tobacco Use: Yes Hx Alcohol Use: Yes - seldom Hx Substance Use: No Hx Physical Abuse: No Hx Emotional Abuse: No - Female History Hx Last Menstrual Period: 06/10/18 Patient : Yes Family Medical History - Family History Mother Family History: No Known Living Status: Hx Family Stroke: Yes - mom Hx Family Diabetes: Yes - multiple family members Physical Exam - Physical Exam General Appearance: Alert, No apparent distress Eye Exam: bilateral normal Ears, Nose, Throat: normal pharynx, other - BL TM'S CLEAR. POSTERIOR OROPHARYNX CLEAR. Neck: lymphadenopathy (R) - ANTERIOR CERVICAL LAD BL. , lymphadenopathy (L) Respiratory: no respiratory distress, no accessory muscle use, wheezing - BL EXPIRATORY WHEEZE. CHRONIC SMOKER. Cardiovascular/Chest: normal peripheral pulses, regular rate, rhythm, no JVD, no murmur Peripheral Pulses: radial,right: 2+, radial,left: 2+ Gastrointestinal/Abdominal: non tender, soft Back Exam: normal inspection Extremity: normal range of motion, non-tender, normal inspection, no pedal edema, no calf tenderness Neurologic: no motor/sensory deficits, alert, normal mood/affect, oriented x 3 Skin Exam: normal color, warm/dry Lymphatic: other - BL ANTERIOR CERVICAL LAD. Progress - Results/Orders Results/Orders: COVID POSITIVE - INSTRUCTED TO ISOLATE 14 DAYS. HER RESPIRATORY STATUS IS SAFE - SATS NL, NO TACHYPNEA, NO SOB. ONLY MILD COUGH. SHE DOES NOT NEED HOSPITALIZATION AT THIS POINT. SAFE FOR DC TO HOME. RETURN PRECAUTIONS GIVEN. RAPID FLU NEG. CXR NEG. COUGH VERY MILD (NONE UPON MY EXAM). NO CONCERN FOR COPD EXACERBATION. NO ABX INDICATED. SMOKER - ADVISED CESSATION. Departure - Departure Clinical Impression: COVID-19 virus infection, Tobacco use disorder Disposition: Discharge to Home or Self Care Condition: Good Departure Forms: ED Discharge - Pt. Copy, Patient Portal Self Enrollment Instructions: DI for Headache, Coronavirus Disease 2019 (COVID-19) ED Diet: bland diet Activity: other - GET PLENTY OF REST. Referrals: JUAN C MAGALLON IV, COLORING MACHINE OPERATOR [Primary Care Provider] - 1-2 Weeks Home Medications: Ambulatory Orders Cyclobenzaprine HCl [Flexeril] 10 mg PO Q6HRS #28 tab 05/16/19 Tramadol HCl [Ultram] 50 mg PO Q6HRS #20 tab 05/16/19 Additional Instructions: You have a COVID infection. Please wear a mask. Please go home and isolate for 14 days to help prevent the spread. If you worsen to where you have troubles breathing, please return to the ER because you could end up needing to be hospitalized. At present your breathing is normal and you do not need to be hospitalized. Please decrease or stop smoking. This will help you recover from COVID and will help prevent future problems including COPD and lung cancer.
--- NOTE | 2020-08-19 07:45 | RAD ---
EXAM DESCRIPTION: Chest,1 View CLINICAL HISTORY: COUGH URI SX FOR 1 D. SMOKER. BL WHEEZE ON PE. COMPARISON: May 06, 2020 IMPRESSION: Single AP portable upright view of the chest shows cardiac silhouette and pulmonary vasculature to be within normal limits. Lungs are normally aerated and clear. Mild increased density in the left lower chest probably represents summation of densities related to patient body habitus and imaging technique rather than atelectasis or developing infiltrate. No obvious pleural effusion or pneumothorax is seen. Electronically signed by: Bogdan Garcia MD 08/19/2020 7:43 AM [facility]
[2020-08-19 08:03] VITALS: BP 148/109; O2SAT 98
== END 2020-08-19 07:55 | disposition home or self-care (01) ==
LOC: ER 07:10
DX: U07.1 COVID-19 (principal); F17.200 Nicotine dependence, unspecified, uncomplicated; Z88.2 Allergy status to sulfonamides

== ENCOUNTER 2020-08-27 10:51 | Emergency (ER) | payer SELFPAY ==
--- NOTE | 2020-08-27 11:00 | ED.PDOC ---
History of Present Illness - General Time Seen by Provider: 08/27/20 10:56 Source: patient, RN notes reviewed, Vital Signs reviewed Additional Information: Female, with no medical problems but is a smoker the presents to the ER because of coughing, and some chest discomfort, patient was diagnosed with COVID-19 viral infection a week ago, patient arrived POV able to walk with a steady gait does not be in any distress able to speak in long complete sentences, patient is concerned because she thinks she might be developing pneumonia, Patient lungs she said that she has cut down on her smoking ever since she was diagnosed with Covid-l9 - History of Present Illness Timing/Duration: week Cough Quality/Degree: dry cough Possible Cause: no prior episodes Improving Factors: nothing Worsening Factors: nothing Associated Symptoms: chest pain/soreness Allergies/Adverse Reactions: Allergies Sulfamethoxazole w/Trimethoprim [From ] Allergy (Mild, Verified 08/27/20 11:07) Hives Home Medications: Ambulatory Orders Cyclobenzaprine HCl [Flexeril] 10 mg PO Q6HRS #28 tab 05/16/19 Tramadol HCl [Ultram] 50 mg PO Q6HRS #20 tab 05/16/19 Albuterol Sulfate Nebs [Proventil Nebs] 2.5 mg INH Q6HRS 1 Days #1 vial 08/27/20 Benzonatate Perles [Tessalon Perles] 100 mg PO TID 20 Days cap 08/27/20 Methylprednisolone [Medrol Dose Juvenla] 4 mg PO DAILY 6 Days #21 tab 08/27/20 Review of Systems - Review of Systems Constitutional: States: malaise EENTM: States: no symptoms reported Respiratory: States: cough, short of breath Cardiology: States: chest pain Gastrointestinal/Abdominal: States: no symptoms reported Musculoskeletal: States: no symptoms reported Skin: States: no symptoms reported Neurological: States: no symptoms reported Endocrine: States: no symptoms reported Hematologic/Lymphatic: States: no symptoms reported Past Medical History (General) - Patient Medical History Hx Seizures: No Hx Dementia: No Hx Asthma: No Hx of COPD: No Hx Cardiac Disorders: No Hx Congestive Heart Failure: No Hx Thyroid Disease: No Hx Diabetes: No Hx Gastroesophageal Reflux: - diverticulitis - Vaccination History Hx Tetanus, Diphtheria Vaccination: No Hx Influenza Vaccination: No Hx Pneumococcal Vaccination: No - Social History Hx Tobacco Use: Yes Hx Alcohol Use: Yes - seldom Hx Substance Use: No Hx Physical Abuse: No Hx Emotional Abuse: No - Female History Hx Last Menstrual Period: 06/10/18 Patient : Yes Family Medical History - Family History Mother Family History: No Known Living Status: Hx Family Stroke: Yes - mom Hx Family Diabetes: Yes - multiple family members Physical Exam - Physical Exam General Appearance: Well Developed, Well Groomed, Well Hydrated, Well Nourished Eye Exam: bilateral normal ENT Exam: normal ENT inspection, hearing grossly normal, TMs normal Neck: non-tender, full range of motion, supple Respiratory: chest non-tender, lungs clear, normal breath sounds, no respiratory distress, no accessory muscle use Cardiovascular/Chest: normal peripheral pulses, regular rate, rhythm, no edema, no JVD, no murmur Gastrointestinal/Abdominal: normal bowel sounds, non tender, soft, no organomegaly, no pulsatile mass Extremity: normal range of motion, non-tender, normal inspection, no pedal edema, no calf tenderness 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 Patient was instructed to keep hydrated at home keep quarantine and return to the ER immediately if there is any worsening respiratory distress, shortness of breath with minimal exertion, high fever altered mental status confusion or any other concern 08/27/20 11:58 Departure - Departure Clinical Impression: COVID-19 Disposition: Discharge to Home or Self Care Condition: Fair Diet: full liquid diet Referrals: JUAN C MAGALLON IV GAS ENGINE OPERATOR GENERATORS [Primary Care Provider] - 1-2 Weeks Prescriptions: Albuterol Sulfate Nebs [Proventil Nebs] 2.5 mg INH Q6HRS 1 Days #1 vial Methylprednisolone [Medrol Dose Juvenal] 4 mg PO DAILY 6 Days #21 tab Benzonatate Perles [Tessalon Perles] 100 mg PO TID 20 Days cap Home Medications: Ambulatory Orders Cyclobenzaprine HCl [Flexeril] 10 mg PO Q6HRS #28 tab 05/16/19 Tramadol HCl [Ultram] 50 mg PO Q6HRS #20 tab 05/16/19 Albuterol Sulfate Nebs [Proventil Nebs] 2.5 mg INH Q6HRS 1 Days #1 vial 08/27/20 Benzonatate Perles [Tessalon Perles] 100 mg PO TID 20 Days cap 08/27/20 Methylprednisolone [Medrol Dose Juvenal] 4 mg PO DAILY 6 Days #21 tab 08/27/20 Additional Instructions: Severe nausea vomiting shortness of breath increased work of breathing. Heart breathing fast unable to speak in long complete sentences unable to holding f luids down fever chills activities or confusion or any other concern
[2020-08-27 11:07] VITALS: BP 122/87; TEMP 97.6; O2SAT 97
--- NOTE | 2020-08-27 11:42 | RAD ---
EXAM DESCRIPTION: Chest,1 View CLINICAL HISTORY: Shortness of breath FINDINGS/ IMPRESSION: Comparison 08/19/2020 Normal cardiomediastinal silhouette. No edema, infiltrate or effusion No pneumothorax. No acute bony abnormality Electronically signed by: Derik Hammer MD 08/27/2020 11:41 AM [facility]
== END 2020-08-27 12:13 | disposition home or self-care (01) ==
LOC: ER 10:51
DX: U07.1 COVID-19 (principal); F17.200 Nicotine dependence, unspecified, uncomplicated; Z88.8 Allergy status to other drugs, medicaments and biological substances

== ENCOUNTER 2020-10-06 17:23 | Emergency (ER) | payer SELFPAY ==
[2020-10-06] MEDS ORDERED: ONDANSETRON INJ 4 MG/2 ML VIAL IV ONE (18:20)
[2020-10-06] MEDS ORDERED: HYDROmorphone HCL INJ 2 MG/ML VIAL IV ONE (18:20)
--- NOTE | 2020-10-06 19:11 | CT ---
EXAM: Abdomen/Pelvis w/Contrast CLINICAL INDICATION: Abdominal pain. COMPARISON: 06/25/2018 TECHNIQUE: The CT scan was done using contiguous axial 5 mm postcontrast sections through the abdomen and pelvis including IV contrast. This exam was performed according to our departmental dose-optimization program, which includes automated exposure control, adjustment of the mA and/or kV according to patient size and/or use of iterative reconstruction technique. FINDINGS: The visualized portions of the lung bases are clear. The liver, kidneys, spleen, adrenal glands, and pancreas have a normal CT appearance. The gallbladder is surgically absent. The aorta is normal in caliber. There are no dilated loops of small bowel. Diverticulosis of the colon is noted. There is mild thickening involving the sigmoid colon within the pelvis which may indicate mild acute diverticulitis, versus colitis. There is no free air, free fluid, or abscess. IMPRESSION: 1. Mild segmental thickening involving a portion of sigmoid colon which may indicate acute diverticulitis versus colitis. 2. Otherwise unremarkable study. Electronically signed by: Perez Castaneda MD 10/06/2020 7:09 PM DIRECTOR OF PSYCHIATRY
[2020-10-06] MEDS ORDERED: PIPERACILLIN/TAZOBACTAM 3.375 GM in SODIUM CHLORIDE 0.9% 100ML 100 ML IVPB ONE (19:13)
--- NOTE | 2020-10-06 19:19 | ED.PDOC ---
History of Present Illness - General Chief Complaint: GI Problem Stated Complaint: abd cramping, diarrhea Time Seen by Provider: 10/06/20 18:19 Information Source: patient - History of Present Illness Initial Comments: PATIENT WITH LLQ PAIN X 48 HOURS PROGRESSIVELY WORSENING, SIMILAR TO DIVERTICULITS PAIN SHE HAS HAD IN THE PAST. SHE HAS HAD 2 PRIOR EPISODES, ONE SHE WAS ADMITTED, ONE SHE WAS TREATED ON AN OUTPATIENT BASIS. Abdominal Pain Onset Location: LLQ Pain Radiation: no radiation Quality: moderate, steady Improving Factors: nothing Worsening Factors: nothing Associated Symptoms: denies symptoms Review of Systems - Review of Systems Constitutional: States: no symptoms reported EENTM: States: no symptoms reported Respiratory: States: no symptoms reported Cardiology: States: no symptoms reported Gastrointestinal/Abdominal: States: see HPI Genitourinary: States: no symptoms reported Musculoskeletal: States: no symptoms reported Skin: States: no symptoms reported Neurological: States: no symptoms reported Past Medical History (General) - Patient Medical History Hx Seizures: No Hx Dementia: No Hx Asthma: No Hx of COPD: No Hx Cardiac Disorders: No Hx Congestive Heart Failure: No Hx Thyroid Disease: No Hx Diabetes: No Hx Gastroesophageal Reflux: - diverticulitis Surgical History: cholecystectomy, tonsillectomy - Vaccination History Hx Tetanus, Diphtheria Vaccination: No Hx Influenza Vaccination: No Hx Pneumococcal Vaccination: No - Social History Hx Tobacco Use: Yes Hx Alcohol Use: Yes - seldom Hx Substance Use: No Hx Physical Abuse: No Hx Emotional Abuse: No - Female History Hx Last Menstrual Period: 06/10/18 Patient : Yes Family Medical History - Family History Mother Family History: No Known Living Status: Hx Family Stroke: Yes - mom Hx Family Diabetes: Yes - multiple family members Physical Exam - Physical Exam General Appearance: Agitated, Anxious Eyes, Ears, Nose, Throat Exam: PERRL/EOMI, normal ENT inspection, TMs normal, pharynx normal Neck: non-tender, full range of motion, supple, normal inspection Respiratory: chest non-tender, lungs clear, normal breath sounds Cardiovascular/Chest: normal peripheral pulses, regular rate, rhythm, no edema, no gallop Peripheral Pulses: No deficit Gastrointestinal/Abdominal: normal bowel sounds, soft, no organomegaly, tenderness - MILD, LLQ Back Exam: normal inspection, no CVA tenderness, no vertebral tenderness Extremity: normal range of motion, non-tender, normal inspection Neurologic: electronics engineer II-XII nml as tested, no motor/sensory deficits, alert, normal mood/affect, oriented x 3 Departure - Departure Clinical Impression: Diverticulitis Time of Disposition: 19:17 Disposition: Discharge to Home or Self Care Condition: Fair Departure Forms: ED Discharge - Pt. Copy, Patient Portal Self Enrollment Instructions: Diverticulitis Referrals: JUAN C MAGALLON IV, STORE COORDINATOR [Primary Care Provider] - 1-2 Weeks Prescriptions: Ciprofloxacin [Cipro] 500 mg PO BID #20 tab metroNIDAZOLE [Flagyl] 500 mg PO Q12H #20 tab Home Medications: Ambulatory Orders Cyclobenzaprine HCl [Flexeril] 10 mg PO Q6HRS #28 tab 05/16/19 Tramadol HCl [Ultram] 50 mg PO Q6HRS #20 tab 05/16/19 Albuterol Sulfate Nebs [Proventil Nebs] 2.5 mg INH Q6HRS 1 Days #1 vial 08/27/20 Benzonatate Perles [Tessalon Perles] 100 mg PO TID 20 Days cap 08/27/20 Methylprednisolone [Medrol Dose Juvenal] 4 mg PO DAILY 6 Days #21 tab 08/27/20 Ciprofloxacin [Cipro] 500 mg PO BID #20 tab 10/06/20 metroNIDAZOLE [Flagyl] 500 mg PO Q12H #20 tab 10/06/20 Additional Instructions: RETURN TO ER IF ANY NEW OR WORSENING SYMPTOMS.
[2020-10-06] MEDS ORDERED: ACETAMINOPHEN 500 MG TAB PO ONE (20:24)
[2020-10-06] MEDS ORDERED: ONDANSETRON ODT 8 MG TAB SL ONE (20:32)
[2020-10-06 20:37] VITALS: BP 121/75; TEMP 97.5; O2SAT 98
== END 2020-10-06 20:42 | disposition home or self-care (01) ==
LOC: ER 17:23
DX: K57.32 Diverticulitis of large intestine without perforation or abscess without bleeding (principal); Z90.49 Acquired absence of other specified parts of digestive tract; Z87.891 Personal history of nicotine dependence
CPT/HCPCS: 36415; 74177; 80053; 81001; 83690; 85025; 93005; J1170; J2405; J2543; J7050

== ENCOUNTER 2020-10-08 08:57 | Observation (INO) | payer SELFPAY ==
--- NOTE | 2020-10-08 09:03 | ED.PDOC ---
History of Present Illness - General Chief Complaint: Abdominal Pain Time Seen by Provider: 10/08/20 08:58 Information Source: patient, RN notes reviewed, Vital Signs reviewed, old records Exam Limitations: no limitations - History of Present Illness Initial Comments: 49 yo F dx with diverticulitis 2 days ago, returns to ER with n/v. Said pain is worsening. Denies black or bloody bm. no dysuria. Abdominal Pain Onset Location: LLQ Quality: moderate Timing/Duration: days - 4 Review of Systems - Review of Systems Constitutional: Denies: chills, fever EENTM: Denies: blurred vision, throat pain Respiratory: Denies: cough Cardiology: Denies: chest pain Gastrointestinal/Abdominal: States: abdominal pain, nausea, vomiting Genitourinary: Denies: dysuria Musculoskeletal: Denies: back pain, muscle pain Skin: Denies: rash Neurological: Denies: headache, seizure Endocrine: Denies: unexplained weight loss Hematologic/Lymphatic: Denies: blood clots, easy bleeding, easy bruising Past Medical History (General) - Patient Medical History Hx Seizures: No Hx Stroke: No Hx Dementia: No Hx Asthma: No Hx of COPD: No Hx Cardiac Disorders: No Hx Congestive Heart Failure: No Hx Pacemaker: No Hx Thyroid Disease: No Hx Diabetes: No Hx Gastroesophageal Reflux: - diverticulitis - Vaccination History Hx Tetanus, Diphtheria Vaccination: No Hx Influenza Vaccination: No Hx Pneumococcal Vaccination: No - Social History Hx Tobacco Use: Yes Hx Alcohol Use: Yes - seldom Hx Substance Use: No Hx Physical Abuse: No Hx Emotional Abuse: No - Female History Hx Last Menstrual Period: 06/10/18 Patient : Yes Family Medical History - Family History Mother Family History: No Known Living Status: Hx Family Stroke: Yes - mom Hx Family Diabetes: Yes - multiple family members Physical Exam - Physical Exam General Appearance: Alert, Comfortable, No apparent distress, Well Developed, Well Groomed, Well Hydrated, Well Nourished Eyes, Ears, Nose, Throat Exam: normal ENT inspection Neck: non-tender, full range of motion, supple, normal inspection Respiratory: lungs clear, normal breath sounds, no respiratory distress Cardiovascular/Chest: normal peripheral pulses, regular rate, rhythm, no edema Peripheral Pulses: 2+ Gastrointestinal/Abdominal: normal bowel sounds, soft, no organomegaly, no pulsatile mass, other - LLQ tenderness, no rebound or gaurding. no peritoneal signs. Rectal Exam: deferred Back Exam: normal inspection, no CVA tenderness Extremity: normal inspection Neurologic: no motor/sensory deficits, alert, normal mood/affect, oriented x 3 Skin Exam: normal color, warm/dry Progress - Progress Progress: 10/08/20 09:[address] scan to make sure patient has not developed obstruction or abscess. patient given IVF, zofran and morphine for pain. Blood work overall unremarkable. CT scan shows improved diverticulitis, no evidence of abscess. continues to have pain and nausea. given phenergan and toradol. attempted PO challenge, patient unable to keep water down. given an additional dose of zofran. Still unable to keep water down. will give IV zosyn. The data reviewed when caring for this patient included: nurse notes, prior records, etc. The history and assessments from nurses notes were reviewed and considered, and the patient's home medication list was also reviewed and considered. My assessment and the results of testing completed here in the ED were discussed with the patient/family. All questions were answered, and they express understanding of my assessment and the plan. attempted multiple times to get patient PO tolerant. She would not tolerate water. Thus I recommend admission. Katy Cox DO #801 - Results/Orders Results/Orders: 10/08/20 09:10 Hold Metformin x 48Hrs [id number] 10/08/20 12:35 BLOOD CULTURE Stat 10/08/20 12:51 RAPID SARS-CoV-2 RNA Stat Laboratory Results WBC 5.6 K/mm3 (4.8-10.8) 10/08/20 09:23 RBC 4.55 M/mm3 (4.20-5.40) 10/08/20 09:23 Hgb 15.7 gm/dL (12.0-16.0) 10/08/20 09:23 Hct 44.2 % (36.0-47.0) 10/08/20 09:23 MCV 97.2 fl (81.0-99.0) 10/08/20 09:23 MCH 34.4 pg (27.0-31.0) H 10/08/20 09:23 MCHC 35.4 g/dL (33.0-37.0) 10/08/20 09:23 RDW 13.5 % (11.5-14.5) 10/08/20 09:23 Plt Count 236 K/mm3 (130-400) 10/08/20 09:23 MPV 8.5 fl (7.40-10.4) 10/08/20 09:23 Absolute Neuts (auto) 3.30 K/uL (1.8-6.8) 10/08/20 09:23 Absolute Lymphs (auto) 1.60 K/uL (1.0-3.4) 10/08/20 09:23 Absolute Monos (auto) 0.60 K/uL (0.2-0.8) 10/08/20 09:23 Absolute Eos (auto) 0.10 K/uL (0.0-0.4) 10/08/20 09:23 Absolute Basos (auto) 0.10 K/uL (0.0-0.1) 10/08/20 09:23 Neutrophils % 58.9 % (42.0-78.0) 10/08/20 09:23 Lymphocytes % 28.7 % (20.0-50.0) 10/08/20 09:23 Monocytes % 9.8 % (2.0-9.0) H 10/08/20 09:23 Eosinophils % 1.7 % (1.0-5.0) 10/08/20 09:23 Basophils % 0.9 % (0.0-2.0) 10/08/20 09:23 Sodium 138 mmol/L (135-145) 10/08/20 09:23 Potassium 3.7 mmol/L (3.6-5.0) 10/08/20 09:23 Chloride 103 mmol/L (101-111) 10/08/20 09:23 Carbon Dioxide 29 mmol/L (21-31) 10/08/20 09:23 Anion Gap 9.7 (12-18) L 10/08/20 09:23 BUN 8 mg/dL (7-18) 10/08/20 09:23 Creatinine 0.88 mg/dL (0.6-1.3) 10/08/20 09:23 BUN/Creatinine Ratio 9.1 (10-20) L 10/08/20 09:23 Random Glucose 118 mg/dL (70-105) H 10/08/20 09:23 Serum Osmolality 275.1 mOsm/L (275-295) 10/08/20 09:23 Calcium 8.4 mg/dL (8.4-10.2) 10/08/20 09:23 Total Bilirubin 0.8 mg/dL (0.2-1.0) 10/08/20 09:23 AST 23 IU/L (10-42) 10/08/20 09:23 ALT 17 IU/L (10-60) 10/08/20 09:23 Alkaline Phosphatase 72 IU/L (42-121) 10/08/20 09:23 Serum Total Protein 7.0 gm/dL (6.4-8.2) 10/08/20 09:23 Albumin 3.7 g/dl (3.2-5.5) 10/08/20 09:23 Globulin 3.3 gm/dL (2.3-3.5) 10/08/20 09:23 Albumin/Globulin Ratio 1.1 (1.1-1.9) 10/08/20 09:23 Lipase 27 U/L (22-51) 10/08/20 09:23 Urine Color Yellow (Yellow) 10/08/20 09:45 Urine Appearance Clear (Clear) 10/08/20 09:45 Urine pH 7.0 (4.5-7.8) 10/08/20 09:45 Ur Specific Hart 1.015 (1.005-1.030) 10/08/20 09:45 Urine Protein Negative mg/dL 10/08/20 09:45 Urine Glucose (UA) Negative mg/dL (Negative) 10/08/20 09:45 Urine Ketones Negative mg/dL (NEGATIVE) 10/08/20 09:45 Urine Blood Negative (Negative) 10/08/20 09:45 Urine Nitrite Negative 10/08/20 09:45 Urine Bilirubin Negative (NEGATIVE) 10/08/20 09:45 Urine Urobilinogen 0.2 mg/dL (0.2-1.0) 10/08/20 09:45 Ur Leukocyte Esterase Trace (Negative) H 10/08/20 09:45 Urine RBC 0 /hpf 10/08/20 09:45 Urine WBC 0-1 /hpf 10/08/20 09:45 Ur Epithelial Cells 1-3 /hpf 10/08/20 09:45 Urine Bacteria 0 10/08/20 09:45 Departure - Departure Clinical Impression: Diverticulitis Nausea & vomiting Qualifiers: Vomiting type: unspecified Vomiting Intractability: intractable Qualified Code(s): R11.2 - Nausea with vomiting, unspecified Disposition: Admit Patient Departure Forms: ED Discharge - Pt. Copy, Patient Portal Self Enrollment Instructions: DI for Abdominal Pain-Adult Diet: other - npo Referrals: JUAN C MAGALLON IV, SECOND OFFICER [Primary Care Provider] - 1-2 Weeks Home Medications: Ambulatory Orders Cyclobenzaprine HCl [Flexeril] 10 mg PO Q6HRS #28 tab 05/16/19 Tramadol HCl [Ultram] 50 mg PO Q6HRS #20 tab 05/16/19 Albuterol Sulfate Nebs [Proventil Nebs] 2.5 mg INH Q6HRS 1 Days #1 vial 08/27/20 Benzonatate Perles [Tessalon Perles] 100 mg PO TID 20 Days cap 08/27/20 Methylprednisolone [Medrol Dose Juvenal] 4 mg PO DAILY 6 Days #21 tab 08/27/20 Ondansetron Odt [Zofran ODT] 8 mg PO Q6H PRN #10 tab 10/06/20 Decision To Admit - Decistion To Admit Decision to Admit Date: 10/08/20 Decision to Admit Time: 12:07
[2020-10-08] MEDS ORDERED: MORPHINE SULFATE INJ 10 MG/ML VIAL IV ONE (09:10)
[2020-10-08] MEDS ORDERED: ONDANSETRON INJ 4 MG/2 ML VIAL IV ONE ×2 (09:10→11:57)
[2020-10-08] MEDS ORDERED: SODIUM CHLORIDE 0.9% 1000ML 1,000 ML IVS ONE (09:10)
[2020-10-08] MEDS ORDERED: KETOROLAC TROMETHAMINE INJ 30 MG/ML VIAL IV ONE (10:36)
[2020-10-08] MEDS ORDERED: PROMETHAZINE HCL INJ 12.5 MG in SODIUM CHLORIDE 0.9% 50ML 50 ML IVPB ONE (10:39)
--- NOTE | 2020-10-08 10:42 | CT ---
EXAM DESCRIPTION: Abdomen/Pelvis w/Contrast CLINICAL HISTORY: worsening LLQ pain, diverticulitis COMPARISON: October 06, 2020 TECHNIQUE: Postcontrast CT images of the abdomen and pelvis are obtained using standard imaging protocol. This exam was performed according to our departmental dose-optimization program, which includes automated exposure control, adjustment of the mA and/or kV according to patient size and/or use of iterative reconstruction technique . FINDINGS: Visualized lung bases show no acute findings. Heterogeneous decreased attenuation of the liver. Liver is enlarged at 18.9 cm. No enhancing hepatic mass. Surgical clips from cholecystectomy are seen with mild expected extrahepatic bile duct dilatation which is stable. The spleen, pancreas, and adrenal glands are unremarkable. Mild vascular calcifications are again seen. No nephrolithiasis. No ureteral calcification or obstruction. Urinary bladder is unremarkable. Uterus and right ovary are normal. 3.3 cm fluid attenuation cyst of the left ovary is again seen. No follow-up imaging is recommended. The appendix is small and unremarkable. Stomach poorly distended but unremarkable. No small bowel obstruction. Scattered diverticuli of the colon are seen. Mild circumferential wall thickening of the descending to sigmoid colon in the left lower quadrant is less prominent than previous with mild adjacent fat stranding. No free intraperitoneal air or abnormal drainable fluid collections are seen. Small probable reactive lymph nodes are seen in the mesentery of the left lower quadrant. Osseous structures show no aggressive bony lesions. Spondylitic changes of the spine are seen. IMPRESSION: Mild acute diverticulitis of the descending to sigmoid colon appears improved compared to previous exam. No new findings on CT of the abdomen and pelvis. Electronically signed by: Bogdan Garcia MD 10/08/2020 10:40 AM [facility]
[2020-10-08] MEDS ORDERED: PIPERACILLIN/TAZOBACTAM 3.375 GM in SODIUM CHLORIDE 0.9% 100ML 100 ML IVPB ONE (11:58)
--- NOTE | 2020-10-08 13:55 | HP ---
SUPERVISING PHYSICIAN: Alfred Shha MD CHIEF COMPLAINT: Abdominal pain. HISTORY OF PRESENT ILLNESS: Ms. Staples is a 49 year-old female patient with a history of diverticulitis. She was seen in the Emergency Room 2 days previously for a flareup of her diverticulosis and was found to have diverticulitis acutely with some associated nausea and vomiting. She was treated with antibiotics with Cipro and Flagyl and discharged home. She had a prescription for Cipro and Flagyl but she was not able to take due to persistent vomiting, therefore, she presented to the Emergency Room with worsening pain. She denied any actual bloody stools, any dysuria. Laboratory studies showed a white count was within normal limits at 5,600, chemistries were fairly unremarkable. Abdominal/pelvic CT with contrast showed mild acute diverticulitis of the descending to sigmoid colon, appears to be improved compared to previous exam on October 06. The patient was given Zosyn in the Emergency Room. She was given antiemetics and pain management and a fluid challenge. She failed her p.o. challenge persistently and unable to hold any oral medications in. Given that she is unable to be treated with oral medications at this point due to [id number] nausea and vomiting, Dr. Cox request the patient be admitted for initiation of IV antibiotics and further treatment of her acute diverticulitis. She is placed in observation in stable condition. PAST MEDICAL HISTORY: 1. Diverticulosis. PAST SURGICAL HISTORY: 1. Cholecystectomy. 2. Tonsillectomy. 3. . CURRENT MEDICATIONS: No home medications. No [id number] supplements. ALLERGIES: Sulfa antibiotics. FAMILY HISTORY: Positive for diabetes, hypertension, stroke. Mother at age 67 due to stroke. Father currently alive but has a history of hypertension. SOCIAL HISTORY: The patient works for [employer] in [place], [place] where she apparently lives. She smokes half-pack a day of cigarettes. She drinks alcohol rare occasions, does not use any illicit drugs. REVIEW OF SYSTEMS: CONSTITUTIONAL: Denies chills, fever, just some mild general malaise. HEENT: Denies earaches, headaches. vision changes, sore throat. nasal congestion.. CHEST: Denies coughing, wheezing, shortness of breath. HEART: Denies chest pain, palpitations, or syncopal episodes. ABDOMEN: As noted in history of present illness. Left lower quadrant abdominal pain with associated nausea and vomiting. GENITOURINARY: Denies dysuria, hematuria or polyuria. MUSCULOSKELETAL: Denies back pain, joint pain, muscle or neck pain. SKIN: Denies lesions, rashes, moles or unexplained changes. NEUROLOGIC: Denies ataxia, seizures, paresthesias, headaches or other neurological deficits. HEMATOLOGICAL: Denies unexplained bleeding, easy bruising or transfusion reactions. PHYSICAL EXAMINATION: VITAL SIGNS: Temperature 98, pulse 60, blood pressure 108/68, respirations 20, oxygen saturation 94% on room air. GENERAL: The patient looks to be a little uncomfortable but she is alert, does not look to be in any undue acute distress. She just received pain management. She is moderately obese. HEENT: Tympanic membranes clear bilaterally. Oropharynx is pink and moist, no lesions. NECK: Supple, non-tender, full range of motion, no jugular venous distention. CHEST: Lung sounds are clear to auscultation bilaterally without rhonchi, rales, or wheezes. CARDIOVASCULAR: Regular rate and rhythm without appreciable murmurs, rubs, or gallops. ABDOMEN: Obese, soft, positive bowel sounds with some noted tenderness to palpation in the left lower quadrant. No rebound, guarding or peritoneal signs. BACK: Normal without any CVA or vertebral tenderness. EXTREMITIES: No cyanosis, clubbing, or edema. NEUROLOGIC: She is alert and oriented x3. Cranial nerves II through XII are grossly intact. SKIN: Warm, pink and dry. RECTAL: Deferred. LABORATORY: White count 5,600, hemoglobin 15.7, hematocrit 44.2, platelet count 236,000. Differential shows to be without a left shift. Chemistries show normal electrolytes. Creatinine at 0.88. Glucose 118. Liver functions all within normal limits. Lipase normal at 27. Urinalysis showed trace of leukoesterase, otherwise within normal limits. MICROBIOLOGY: Covid swab was negative. Blood cultures are pending. RADIOLOGY: Abdominal/pelvic CT with contrast per radiology interpretation showed mild acute diverticulitis of the descending to sigmoid colon, appears to be improved from previous exam. ASSESSMENT: 1. History of diverticulosis with acute diverticulitis without any concerning findings on CT to include abscess or perforation. 2. Nausea and vomiting with inability to hold any oral medication. 3. Nicotine addiction in current smoker. 4. Obesity with body mass index of 50. PLAN: Ms. Staples is going to be placed in observation for continued treatment of her symptoms related to diverticulitis. She will be kept n.p.o. for at least 24 hours. We will have her on IV fluids of D5 half normal saline with 20 of potassium. She will have Zofran and Phenergan for any nausea or vomiting that she may have. She will have Toradol p.r.n. as well as morphine to control the pain. She will have Lovenox for DVT prophylaxis as well as be on a PPI for gastric protection. I would anticipate her length of stay to probably 1 to 2 days. Will advance her diet as soon as she can tolerate intake and is no longer having any nausea. Until we can transition patient to outpatient management, we will continue to monitor and treat as needed. #[id number] MTDD
[2020-10-08] MEDS ORDERED: ACETAMINOPHEN SUPPOSITORY 650 MG PR PRN (14:20)
[2020-10-08] MEDS ORDERED: SODIUM CHLORIDE 0.9% (FLUSH) 10 ML SYG IV PRN (14:20)
[2020-10-08] MEDS ORDERED: ONDANSETRON INJ 4 MG/2 ML VIAL IV PRN (14:20)
[2020-10-08] MEDS ORDERED: MORPHINE SULFATE INJ 10 MG/ML VIAL IV PRN (14:20)
[2020-10-08] MEDS ORDERED: PROMETHAZINE HCL INJ 25 MG in SODIUM CHLORIDE 0.9% 50ML 50 ML IVPB PRN (14:24)
[2020-10-08] MEDS ORDERED: KETOROLAC TROMETHAMINE INJ 30 MG/ML VIAL IV PRN (14:26)
[2020-10-08] MEDS ORDERED: IV SET AND CAP CHANGE INJ INJ SCH (14:30)
[2020-10-08] MEDS ORDERED: levoFLOXacin 500MG IV 100 ML IVPB ONE (15:15)
[2020-10-08] MEDS ORDERED: metroNIDAZOLE IV PREMIX 500MG 100 ML IVPB ONE (15:15)
[2020-10-08] MEDS: PANTOPRAZOLE SODIUM IV 40 MG VIAL IV SCH (15:21)
[2020-10-08] MEDS: metroNIDAZOLE IV PREMIX 500MG 500 MG in PREMIX BAG 1 BAG IVPB SCH ×2 (15:21→22:22)
[2020-10-08] MEDS: KCL 20MEQ/D5 1/2NS 1,000 ML IVS PRN (15:21)
[2020-10-08] MEDS: levoFLOXacin 500MG IV 500 MG in PREMIX BAG 1 BAG IVPB SCH (17:06)
[2020-10-08] MEDS ORDERED: ENOXAPARIN SODIUM 40 MG/0.4 ML SYG SUBCU ONE (19:08)
[2020-10-08] MEDS: ENOXAPARIN SODIUM 40 MG/0.4 ML SYG SUBCU SCH (20:47)
[2020-10-09] MEDS: KCL 20MEQ/D5 1/2NS 1,000 ML IVS PRN ×2 (04:16→13:42)
[2020-10-09] MEDS: metroNIDAZOLE IV PREMIX 500MG 500 MG in PREMIX BAG 1 BAG IVPB SCH ×3 (05:56→22:27)
[2020-10-09] MEDS: BIFIDOBACTERIUM INFANTIS 4 MG CAP PO SCH (10:11)
--- NOTE | 2020-10-09 13:14 | PN ---
SUPERVISING PHYSICIAN: Alfred Shah MD DATE: 10/09/20 SUBJECTIVE: The patient remains NPO. She has not really had any episodes of nausea, but she has had some continued pain in her left upper quadrant down to the left lower quadrant. No further complaints. She has been afebrile. OBJECTIVE: VITAL SIGNS: Temperature 98, pulse 64, blood pressure 109/64, respirations 18, saturation 93% on room air. GENERAL: The patient is resting comfortably in no acute distress. CHEST: Lungs are clear to auscultation. HEART: Regular rate and rhythm. ABDOMEN: Obese, but soft with tenderness noted in the left upper quadrant and down into the left lower quadrant. No peritoneal signs. No rebound tenderness. Bowel sounds are active. NEUROLOGIC: Alert and oriented times three. LABORATORY: White count 4,500 without a left shift. Hemoglobin 14.5, hematocrit 4.17, platelet count 183,000. Chemistries show normal electrolytes, creatinine 0.9, BUN 9. Liver functions all within normal limits. Calcium 7.8 but corrects to 8.1 for albumin 3.0. MICROBIOLOGY: Blood cultures remain negative. RADIOLOGY: No additional radiographic studies today. ASSESSMENT: 1. History of diverticulosis with acute diverticulitis without any concerning findings on CT to include abscess or perforation. 2. Nausea and vomiting with inability to hold any oral medication. 3. Nicotine addiction in current smoker. 4. Obesity with body mass index of 50. PLAN: The patient will remain in observation at least another 24 hours, she is still having a significant amount of pain. I anticipate we will be able to do a p.o. challenge tomorrow starting with clear liquids. She will remain on Flagyl and Levaquin and IV fluids. She is on Lovenox for DVT prophylaxis. She remains on proton pump inhibitor for gastric protection. If she passes the p.o. challenge tomorrow, we can advance her diet hopefully and plan to discharge later tomorrow. Until that point, we will continue to monitor and treat as needed. #[id number] MTDD
[2020-10-09] MEDS: PANTOPRAZOLE SODIUM IV 40 MG VIAL IV SCH (14:41)
[2020-10-09] MEDS: levoFLOXacin 500MG IV 500 MG in PREMIX BAG 1 BAG IVPB SCH (16:30)
[2020-10-09] MEDS ORDERED: ALUM & MAG HYDROX-SIMETHICONE 30 ML, LIDOCAINE VISCOUS 2% 15 ML PO ONE ×2 (19:16)
[2020-10-09] MEDS ORDERED: CALCIUM CARBONATE (ANTACID) 500 MG CHEWABLE TAB PO PRN (19:17)
[2020-10-09] MEDS ORDERED: LIDOCAINE HCL 2% (MOUTH-THROAT) 15 ML UD ONE (19:21)
[2020-10-09] MEDS ORDERED: ALUM & MAG HYDROX-SIMETHICONE 30 ML UD ONE (19:21)
[2020-10-09] MEDS: ENOXAPARIN SODIUM 40 MG/0.4 ML SYG SUBCU SCH (20:36)
[2020-10-10] MEDS: KCL 20MEQ/D5 1/2NS 1,000 ML IVS PRN (01:11)
[2020-10-10] MEDS: metroNIDAZOLE IV PREMIX 500MG 500 MG in PREMIX BAG 1 BAG IVPB SCH ×2 (06:25→15:10)
[2020-10-10] MEDS: BIFIDOBACTERIUM INFANTIS 4 MG CAP PO SCH (09:17)
[2020-10-10 14:16] VITALS: O2SAT 96
[2020-10-10] MEDS ORDERED: levoFLOXacin 500 MG TAB PO ONE (14:38)
[2020-10-10] MEDS ORDERED: metroNIDAZOLE 500 MG TAB PO ONE (14:39)
[2020-10-10] MEDS ORDERED: levoFLOXacin 500 MG TAB ONE (15:07)
[2020-10-10] MEDS ORDERED: metroNIDAZOLE 500 MG TAB ONE (15:07)
[2020-10-10] MEDS: PANTOPRAZOLE SODIUM IV 40 MG VIAL IV SCH (15:09)
[2020-10-10] MEDS: levoFLOXacin 500MG IV 500 MG in PREMIX BAG 1 BAG IVPB SCH (15:10)
[2020-10-10 15:57] VITALS: BP 117/59; TEMP 98.2
--- NOTE | 2020-10-13 08:43 | DS ---
SUPERVISING PHYSICIAN: Alfred Shah MD DISCHARGE DIAGNOSIS: 1. History of diverticulosis with acute diverticulitis without any concerning findings on CT to include abscess or perforation. 2. Nausea and vomiting with inability to hold any oral medication. 3. Nicotine addiction in current smoker. 4. Obesity with body mass index of 50. HISTORY OF PRESENT ILLNESS: This is a 49-year-old female patient who was seen in the Emergency Room 2 days prior due to flare-up of her diverticulosis and was found to have diverticulitis acutely. She was placed on Cipro and Flagyl and discharged home. She unable to take it at that time due to persistent vomiting and presented to the Emergency Room with white count of 5,600. Chemistries were unremarkable. Abdominal/pelvic CT with contrast showed mild acute diverticulitis of the descending to sigmoid colon. It had improved compared to previous exam on October 06. The patient was given Zosyn in the Emergency Room. She was given antiemetics, pain management and a fluid challenge. She failed her p.o. challenge persistently and unable to hold down any oral medications. She was admitted to the hospital for IV antibiotics and further treatment of her acute diverticulitis. She is placed in observation in stable condition. HOSPITAL COURSE: The patient was placed on bowel rest and IV fluids. She had antiemetics ordered for her nausea. She also had Toradol and morphine for her pain. Lovenox was started for DVT prophylaxis as well as proton pump inhibitor for gastric protection. Her diet was then slowly advanced. She was able to tolerated to clear liquids and was then advanced to full liquids. Her Levaquin and Flagyl were continued as IV. She clinically improved each day. Her vital signs were stable. Her lab studies improved and she has tolerated her p.o. challenge and will be discharged today in stable condition. LABORATORY: CBC was unremarkable. Her electrolytes were within normal limits with the exception of slightly low calcium of 7.8. Serum total protein was 5.8 and albumin was 3. Urinalysis was unremarkable although it did have a trace of urine leukocyte esterase. MICROBIOLOGY: Preliminary blood cultures showed no growth. COVID swab was negative. RADIOLOGY: Abdominal/pelvis CT from the ER showed mild acute diverticulitis of the descending to sigmoid colon and appears improved compared to previous exam. DISCHARGE PLAN: The patient will be discharged home in stable condition. She is to resume her previous diet and increase her activity as tolerated. She is to followup with her primary care physician, Javon Kumar, within the next 1 to 2 weeks. She has 1-1/2 days of Cipro and Flagyl at home and she is to complete those as previously ordered. She is to return to the hospital or followup with Javon Kumar, her primary care provider, for any problems or complications. DISCHARGE MEDICATIONS: 1. Align. 2. Flagyl. 3. Ciprofloxacin. #[id number] MTDD
== END 2020-10-10 16:15 | disposition home or self-care (01) ==
LOC: ER 08:57 → MS 13:54
PROVIDERS: ADMIT Nurse Practitioner Family; ATTEND Nurse Practitioner Acute Care
DX: K57.32 Diverticulitis of large intestine without perforation or abscess without bleeding (principal); R11.2 Nausea with vomiting, unspecified; F17.210 Nicotine dependence, cigarettes, uncomplicated; E83.51 Hypocalcemia; E66.9 Obesity, unspecified; Z68.43 Body mass index [BMI] 50.0-59.9, adult; Z20.822 Contact with and (suspected) exposure to COVID-19; Z90.49 Acquired absence of other specified parts of digestive tract; Z88.2 Allergy status to sulfonamides
CPT/HCPCS: 96366 ×2; 96367; 96365; 96368; 96375; 96376 ×3; 96372 ×2; J1885; J1956 ×2; J3490 ×6; J2270 ×2; J2405 ×2; J2543; J2550 ×2; J7030; A4216 ×2; J1650 ×2; J7050; 80053 ×2; 36415 ×3; 81001; 85025 ×2; 87040 ×2; 83690; 74177; 94760 ×3; 99285; G0378; 87635